=== PATIENT | male | born 1985 | race African-American/Black ===

== ENCOUNTER 2016-10-27 00:28 | Emergency (ER) | payer OTHER ==
--- NOTE | ~2016-10-27 | CR127 ---
[facility] A Service of [facility] & [facility] RADIOLOGY TEXT RESULTS PATIENT: MEAGHAN WHEELER LOCATION: [facility] : 89 UNIT #: [id number] AGE: [address]: Ty Russell SEX: M ORDER DR: [id number] [facility] [address] [place], [place] [address] [id number] E MR#: [id number] Acc #: [id number] NAME: MEAGHAN WHEELER : 1985 SEX: M STUDY DATE/TIME: 10/27/2016 1:52 UNIT: [facility] ROOM: STUDY DESCRIPTION: CR Foot Complete Min 3 View Rt Attending Physician: Ty Russell P.A.-C. Ordering Physician: Benja Wang D.O. Primary Care Physician: Primary Care Physician No MEDICAL IMAGING REPORT This report is preliminary unless electronic signature is present EXAM Right foot series INDICATION Right foot pain after an injury today. PROCEDURE 3 views right foot COMPARISON None FINDINGS No acute fracture or dislocation. IMPRESSION No acute findings. Dictated by... Domingo Londono M.D. THIS IS AN ELECTRONICALLY VERIFIED REPORT Domingo Londono M.D. at 10/31/2016 7:22 AM Orion TD: 10/27/2016 10:10 JOB #: [id number] MEDICAL IMAGING REPORT Page 1 of 1 COPY
--- NOTE | ~2016-10-27 | CR21 ---
[facility] A Service of [facility] & [facility] RADIOLOGY TEXT RESULTS PATIENT: MEAGHAN WHEELER LOCATION: [facility] : 89 UNIT #: [id number] AGE: [address]: Ty Russell SEX: M ORDER DR: [id number] [facility] [address] [place], [place] [address] [id number] E MR#: [id number] Acc #: [id number] NAME: MEAGHAN WHEELER : 1985 SEX: M STUDY DATE/TIME: 10/27/2016 1:50 UNIT: [facility] ROOM: STUDY DESCRIPTION: CR Ankle Min 3 Views Rt Attending Physician: Ty Russell P.A.-C. Ordering Physician: Benja Wang D.O. Primary Care Physician: No Primary Care Physician MEDICAL IMAGING REPORT This report is preliminary unless electronic signature is present EXAM Right ankle series. INDICATIONS Right ankle pain after an injury today. PROCEDURE Three views of the right ankle. COMPARISON None. FINDINGS No acute fracture. No dislocation. IMPRESSION No acute findings. Dictated by... Domingo Londono M.D. THIS IS AN ELECTRONICALLY VERIFIED REPORT Domingo Londono M.D. at 10/31/2016 7:22 AM KEITH/herberth TD: 10/27/2016 10:18 JOB #: [id number] MEDICAL IMAGING REPORT Page 1 of 1 COPY
== END 2016-10-27 03:07 | disposition home or self-care (01) ==
LOC: CED 00:28
DX: S97.81XA Crushing injury of right foot, initial encounter (principal); Z87.442 Personal history of urinary calculi; F17.210 Nicotine dependence, cigarettes, uncomplicated; V03.90XA Pedestrian on foot injured in collision with car, pick-up truck or van, unspecified whether traffic or nontraffic accident, initial encounter; Y92.481 Parking lot as the place of occurrence of the external cause
CPT/HCPCS: 29515; 73610; 73630; 99283

== ENCOUNTER 2016-10-31 10:23 | Emergency (ER) | payer OTHER ==
--- NOTE | ~2016-10-31 | CR127 ---
[facility] A Service of [facility] & [facility] RADIOLOGY TEXT RESULTS PATIENT: MEAGHAN WHEELER LOCATION: [facility] : 89 UNIT #: [id number] AGE: [address]: Ravindra Saab MD SEX: M ORDER DR: [id number] [facility] [address] [place], [place] [address] [id number] E MR#: [id number] Acc #: [id number] NAME: MEAGHAN WHEELER : 1985 SEX: M STUDY DATE/TIME: 10/31/2016 12:06 UNIT: [facility] ROOM: STUDY DESCRIPTION: CR Foot Complete Min 3 View Rt Attending Physician: Ravindra Saab M.D. Ordering Physician: Ravindra Saab M.D. Primary Care Physician: Primary Care Physician No MEDICAL IMAGING REPORT This report is preliminary unless electronic signature is present EXAM Right foot series, 10/31/2016 HISTORY Trauma. Dropped an object on his foot. One day duration of pain. Pain, swelling top of right foot. FINDINGS AP lateral and oblique radiographs of the right foot are presented. No traumatic fracture or malalignment. The joint spaces are intact. No soft tissue defect, subcutaneous air or radiodense foreign body. Dictated by... Ty Sena M.D. THIS IS AN ELECTRONICALLY VERIFIED REPORT Ty Sena M.D. at 11/03/2016 8:26 AM Nena TD: 10/31/2016 14:30 JOB #: [id number] MEDICAL IMAGING REPORT Page 1 of 1 COPY
== END 2016-10-31 13:29 | disposition home or self-care (01) ==
LOC: CED 10:23
DX: S90.31XA Contusion of right foot, initial encounter (principal); F17.200 Nicotine dependence, unspecified, uncomplicated; Z87.442 Personal history of urinary calculi; W20.8XXA Other cause of strike by thrown, projected or falling object, initial encounter
CPT/HCPCS: 73630; 99283